=== PATIENT | female | born 1935 | race Caucasian/White ===

== ENCOUNTER → 2023-12-25 00:16 | Outpatient (REF) | payer MEDICARE, SELFPAY | LOC: DHSLP 00:16 | PROVIDERS: ATTENDING PHYSICIAN Internal Medicine; FAMILY PHYSICIAN Internal Medicine | DX: G47.33 Obstructive sleep apnea (adult) (pediatric) (principal); G47.61 Periodic limb movement disorder | CPT/HCPCS: 95811 ==

== ENCOUNTER → 2023-12-30 11:19 | Outpatient (REF) | payer MEDICARE, SELFPAY ==
[2023-12-30 16:05] LABS: % Eosinophils 4.7 % (0-6); % Immature Granulocytes 0.2 % (0-0.5); % Lymphocytes 31.8 % (20.5-51.1); % Monocytes 10.8 % (1.7-9.3); % Neutrophils 51.5 % (42.2-75.2); Absolute Basophils 0.1 10^3/uL (0-0.2); Absolute Eosinophils 0.3 10^3/uL (0-0.7); Absolute Monocytes 0.7 10^3/uL (0.1-0.6); Absolute Neutrophils 3.2 10^3/uL (1.4-6.5); Hematocrit 38.8 % (37.0-47.0); Hemoglobin 12.3 g/dL (12.0-16.0); Mean Corp Hgb Conc. 31.7 g/dL (33.0-37.0); Mean Corpuscular Hgb 31.4 pg (27.0-31.0); Mean Platelet Volume 11.4 fL (7.4-10.4); Nucleated Red Blood Cells % 0 %; Platelet Count 151 10^3/uL (130-400); Red Blood Cell Count 3.92 10^6/uL (4.20-5.40); Red Cell Dist. Width 13.5 % (11.5-14.5); White Blood Cell Count 6.2 10^3/uL (4.8-10.8)
[2023-12-30 16:31] LABS: ALT (SGPT) 19 U/L (0-35); AST (SGOT) 29 U/L (14-36); Albumin 3.8 g/dl (3.5-5.0); Alkaline Phosphatase 78 U/L (38-126); Blood Urea Nitrogen 62 mg/dl (7-17); Calcium 9.4 mg/dl (8.4-10.2); Carbon Dioxide 33 mmol/L (22-30); Chloride 100 mmol/L (98-107); Glucose 97 mg/dl (70-99); HDL Cholesterol 60 mg/dl; LDL Cholesterol, Calculated 128 mg/dl; Potassium 4.2 mmol/L (3.5-5.1); Sodium 139 mmol/L (135-145); Total Bilirubin 0.7 mg/dl (0.2-1.3); Total Cholesterol 204 mg/dl (50-199); Total Protein 6.5 g/dl (6.3-8.2); Triglyceride 83 mg/dl (10-149); Very Low Density Lipoprotein 16 mg/dl (0-30)
[2023-12-31 09:33] LABS: Glycohemoglobin (HgbA1c) 5.8 % (4.0-5.6)
[2024-01-01 21:56] LABS: ANA, IgG Reflex to HEp-2 None Detected (None Detected)
== END ==
LOC: HWLAB 11:19
PROVIDERS: ATTENDING PHYSICIAN Internal Medicine; FAMILY PHYSICIAN Psychiatry & Neurology Neurology
DX: I10 Essential (primary) hypertension (principal); E78.5 Hyperlipidemia, unspecified; E66.3 Overweight; Z00.00 Encounter for general adult medical examination without abnormal findings; Z95.0 Presence of cardiac pacemaker
CPT/HCPCS: 36415; 80053; 80061; 83036; 85025; 86038

== ENCOUNTER 2024-01-21 15:41 | Outpatient (RCR) | payer MEDICARE, SELFPAY | END 2024-01-21 23:59 | disposition home or self-care (01) | LOC: RPT 15:41 | PROVIDERS: ATTENDING PHYSICIAN Psychiatry & Neurology Neurology; FAMILY PHYSICIAN Internal Medicine | DX: G62.9 Polyneuropathy, unspecified (principal); R26.2 Difficulty in walking, not elsewhere classified; Z73.6 Limitation of activities due to disability; M62.81 Muscle weakness (generalized) | CPT/HCPCS: 97110; 97112; 97162; 97530 ==

== ENCOUNTER → 2024-01-29 12:18 | Outpatient (REF) | payer MEDICARE, SELFPAY ==
[2024-01-29 16:40] LABS: Urine Albumin Trace (Neg - Trace); Urine Bilirubin Negative (Negative); Urine Character Clear (Clear); Urine Color Yellow; Urine Glucose Negative (Negative); Urine Ketone Negative (Negative); Urine Leukocyte 2+ (Negative); Urine Nitrite Positive (Negative); Urine Occult Blood Trace (Negative); Urine Urobilinogen Negative (Neg - 1+)
[2024-01-29 16:54] LABS: Urine Bacteria Many (Negative); Urine White Cell 50-60 /HPF (0-5)
== END ==
LOC: HWLAB 12:18
PROVIDERS: ATTENDING PHYSICIAN Internal Medicine
DX: R05.9 Cough, unspecified (principal); N39.0 Urinary tract infection, site not specified
CPT/HCPCS: 81003; 81015; 87077; 87086; 87186

== ENCOUNTER → 2024-02-09 12:24 | Outpatient (REF) | payer MEDICARE, SELFPAY | LOC: MRI 12:24 | PROVIDERS: ATTENDING PHYSICIAN Psychiatry & Neurology Neurology; FAMILY PHYSICIAN Internal Medicine | DX: M79.604 Pain in right leg (principal); Z95.0 Presence of cardiac pacemaker | CPT/HCPCS: 71046; 72148 ==

== ENCOUNTER → 2024-03-16 10:15 | Outpatient (REF) | payer MEDICARE, SELFPAY ==
[2024-03-16 15:18] LABS: Urine Albumin Negative (Neg - Trace); Urine Bilirubin Negative (Negative); Urine Character Clear (Clear); Urine Color Yellow; Urine Glucose Negative (Negative); Urine Ketone Negative (Negative); Urine Leukocyte Trace (Negative); Urine Nitrite Negative (Negative); Urine Occult Blood Negative (Negative); Urine Urobilinogen Negative (Neg - 1+)
[2024-03-16 15:24] LABS: Urine Bacteria Moderate (Negative); Urine Red Blood Cell 0-2 /HPF (0-2); Urine Squamous Cell >30 /LPF (Few)
== END ==
LOC: HWLAB 10:15
PROVIDERS: ATTENDING PHYSICIAN Internal Medicine
DX: R39.9 Unspecified symptoms and signs involving the genitourinary system (principal)
CPT/HCPCS: 81003; 81015; 87086

== ENCOUNTER → 2024-04-14 10:39 | Outpatient (REF) | payer MEDICARE, SELFPAY ==
[2024-04-14 12:06] LABS: Urine Albumin Negative (Neg - Trace); Urine Bilirubin Negative (Negative); Urine Character Clear (Clear); Urine Color Yellow; Urine Glucose Negative (Negative); Urine Ketone Negative (Negative); Urine Leukocyte Negative (Negative); Urine Nitrite Negative (Negative); Urine Occult Blood Negative (Negative); Urine Specific Gravity 1.015 (<1.030); Urine Urobilinogen Negative (Neg - 1+)
== END ==
LOC: HWLAB 10:39
PROVIDERS: ATTENDING PHYSICIAN Internal Medicine
DX: R61 Generalized hyperhidrosis (principal); N39.0 Urinary tract infection, site not specified
CPT/HCPCS: 81003; 87086

== ENCOUNTER 2024-04-28 11:32 | Outpatient (RCR) | payer MEDICARE, SELFPAY | END 2024-04-28 23:59 | disposition home or self-care (01) | LOC: RPT 11:32 | PROVIDERS: ATTENDING PHYSICIAN Internal Medicine | DX: R26.89 Other abnormalities of gait and mobility (principal) | CPT/HCPCS: 97110; 97162 ==

== ENCOUNTER → 2024-05-05 11:32 | Outpatient (REF) | payer MEDICARE, SELFPAY ==
[2024-05-05 16:55] LABS: Urine Albumin Negative (Neg - Trace); Urine Bilirubin Negative (Negative); Urine Character Clear (Clear); Urine Color Yellow; Urine Glucose Negative (Negative); Urine Ketone Negative (Negative); Urine Leukocyte Trace (Negative); Urine Nitrite Positive (Negative); Urine Occult Blood Negative (Negative); Urine Specific Gravity 1.015 (<1.030); Urine Urobilinogen Negative (Neg - 1+)
[2024-05-05 17:10] LABS: Blood Urea Nitrogen 47 mg/dl (7-17)
[2024-05-05 17:16] LABS: Urine Bacteria Moderate (Negative); Urine Red Blood Cell 0-2 /HPF (0-2); Urine White Cell 0-2 /HPF (0-5)
== END ==
LOC: HWLAB 11:32
PROVIDERS: ATTENDING PHYSICIAN Internal Medicine
DX: E86.0 Dehydration (principal); R35.0 Frequency of micturition
CPT/HCPCS: 36415; 81003; 81015; 82565; 84520; 87086; 87088; 87186

== ENCOUNTER 2024-05-26 12:45 | Outpatient (RCR) | payer MEDICARE, SELFPAY | END 2024-05-26 23:59 | disposition home or self-care (01) | LOC: RPT 12:45 | PROVIDERS: ATTENDING PHYSICIAN Internal Medicine | DX: R26.89 Other abnormalities of gait and mobility (principal); M48.061 Spinal stenosis, lumbar region without neurogenic claudication; Z73.6 Limitation of activities due to disability | CPT/HCPCS: 97110; 97112 ==

== ENCOUNTER → 2024-05-27 09:11 | Outpatient (REF) | payer MEDICARE, SELFPAY | LOC: MRI 09:11 | PROVIDERS: ATTENDING PHYSICIAN Surgery; FAMILY PHYSICIAN Internal Medicine | DX: K80.20 Calculus of gallbladder without cholecystitis without obstruction (principal); K82.8 Other specified diseases of gallbladder; K83.8 Other specified diseases of biliary tract | CPT/HCPCS: 74183; A9575 ==

== ENCOUNTER 2024-06-18 13:07 | Outpatient (RCR) | payer MEDICARE, SELFPAY | END 2024-06-30 07:46 | disposition home or self-care (01) | LOC: RPT 13:07 | PROVIDERS: ATTENDING PHYSICIAN Internal Medicine | DX: R26.89 Other abnormalities of gait and mobility (principal); M48.061 Spinal stenosis, lumbar region without neurogenic claudication; Z73.6 Limitation of activities due to disability | CPT/HCPCS: 97110; 97112 ==

== ENCOUNTER → 2025-02-04 11:03 | Outpatient (REF) | payer MEDICARE, SELFPAY ==
[2025-02-04 15:22] LABS: % Basophils 0.9 % (0-2); % Eosinophils 4.9 % (0-6); % Immature Granulocytes 0.1 % (0-0.5); % Lymphocytes 26.9 % (20.5-51.1); % Monocytes 10.2 % (1.7-9.3); Absolute Basophils 0.1 10^3/uL (0-0.2); Absolute Eosinophils 0.3 10^3/uL (0-0.7); Absolute Lymphocytes 1.9 10^3/uL (1.2-3.4); Absolute Monocytes 0.7 10^3/uL (0.1-0.6); Hemoglobin 12.3 g/dL (12.0-16.0); Mean Corp Hgb Conc. 30.8 g/dL (33.0-37.0); Mean Corpuscular Hgb 30.4 pg (27.0-31.0); Mean Corpuscular Volume 98.8 fL (81.0-99.0); Mean Platelet Volume 10.5 fL (7.4-10.4); Nucleated Red Blood Cells % 0 %; Platelet Count 143 10^3/uL (130-400); Red Blood Cell Count 4.05 10^6/uL (4.20-5.40); Red Cell Dist. Width 12.8 % (11.5-14.5)
[2025-02-04 15:28] LABS: ALT (SGPT) 18 U/L (0-35); AST (SGOT) 32 U/L (14-36); Albumin 4.1 g/dl (3.5-5.0); Alkaline Phosphatase 81 U/L (38-126); Blood Urea Nitrogen 39 mg/dl (7-17); Calcium 9.3 mg/dl (8.4-10.2); Carbon Dioxide 32 mmol/L (22-30); Chloride 99 mmol/L (98-107); Glucose 97 mg/dl (70-99); HDL Cholesterol 65 mg/dl; LDL Cholesterol, Calculated 125 mg/dl; Potassium 4.6 mmol/L (3.5-5.1); Sodium 139 mmol/L (135-145); Total Bilirubin 0.9 mg/dl (0.2-1.3); Total Cholesterol 210 mg/dl (50-199); Total Protein 6.6 g/dl (6.3-8.2); Triglyceride 100 mg/dl (10-149); Very Low Density Lipoprotein 20 mg/dl (0-30); eGFR 43.54
== END ==
LOC: HWLAB 11:03
PROVIDERS: ATTENDING PHYSICIAN Internal Medicine
DX: I10 Essential (primary) hypertension (principal); Z95.0 Presence of cardiac pacemaker; E78.5 Hyperlipidemia, unspecified
CPT/HCPCS: 36415; 80053; 80061; 85025

== ENCOUNTER → 2025-02-23 12:34 | Outpatient (REF) | payer MEDICARE, SELFPAY | LOC: HWRAD 12:34 | PROVIDERS: ATTENDING PHYSICIAN Nurse Practitioner Women's Health; FAMILY PHYSICIAN Internal Medicine | DX: N83.209 Unspecified ovarian cyst, unspecified side (principal) | CPT/HCPCS: 76830; 76856 ==

== ENCOUNTER → 2025-03-11 12:53 | Outpatient (REF) | payer MEDICARE, SELFPAY | LOC: HWWDC 12:53 | PROVIDERS: ATTENDING PHYSICIAN Nurse Practitioner Women's Health; FAMILY PHYSICIAN Internal Medicine | DX: Z12.31 Encounter for screening mammogram for malignant neoplasm of breast (principal); M81.0 Age-related osteoporosis without current pathological fracture | CPT/HCPCS: 77063; 77067; 77080 ==

== ENCOUNTER → 2025-03-29 12:07 | Outpatient (REF) | payer MEDICARE, SELFPAY ==
[2025-03-29 16:48] LABS: CA 125 < 5.5 U/mL (0-35)
== END ==
LOC: HWLAB 12:07
PROVIDERS: ATTENDING PHYSICIAN Nurse Practitioner Women's Health; FAMILY PHYSICIAN Internal Medicine; REFERRING PHYSICIAN Obstetrics & Gynecology Gynecologic Oncology
DX: N83.209 Unspecified ovarian cyst, unspecified side (principal); E78.5 Hyperlipidemia, unspecified
CPT/HCPCS: 36415; 86304

== ENCOUNTER → 2025-04-06 12:02 | Outpatient (REF) | payer MEDICARE, SELFPAY ==
[2025-04-06 17:33] LABS: CEA 4.23 ng/ml
== END ==
LOC: HWLAB 12:02
PROVIDERS: ATTENDING PHYSICIAN Nurse Practitioner Women's Health; FAMILY PHYSICIAN Internal Medicine; REFERRING PHYSICIAN Obstetrics & Gynecology Gynecologic Oncology
DX: R19.09 Other intra-abdominal and pelvic swelling, mass and lump (principal); R97.0 Elevated carcinoembryonic antigen [CEA]; R97.1 Elevated cancer antigen 125 [CA 125]
CPT/HCPCS: 36415; 82378

== ENCOUNTER → 2025-08-18 13:50 | Outpatient (REF) | payer MEDICARE, SELFPAY ==
[2025-08-18 16:07] LABS: Urine Character Clear (Clear)
== END ==
LOC: HWLAB 13:50
PROVIDERS: ATTENDING PHYSICIAN Internal Medicine
DX: R39.9 Unspecified symptoms and signs involving the genitourinary system (principal)
CPT/HCPCS: 81003; 87086

== ENCOUNTER → 2025-09-06 16:32 | Outpatient (REF) | payer MEDICARE, SELFPAY ==
[2025-09-06 17:14] LABS: Urine Character Clear (Clear)
== END ==
LOC: CLAB 16:32
PROVIDERS: ATTENDING PHYSICIAN Internal Medicine
DX: N39.0 Urinary tract infection, site not specified (principal); R31.9 Hematuria, unspecified
CPT/HCPCS: 81003; 87086

== ENCOUNTER → 2025-09-19 13:09 | Outpatient (REF) | payer MEDICARE, SELFPAY ==
[2025-09-19 15:39] LABS: Urine Character Clear (Clear)
== END ==
LOC: HWLAB 13:09
PROVIDERS: ATTENDING PHYSICIAN Internal Medicine
DX: R39.9 Unspecified symptoms and signs involving the genitourinary system (principal)
CPT/HCPCS: 81003; 87086

== ENCOUNTER → 2025-10-07 10:34 | Outpatient (REF) | payer MEDICARE, SELFPAY ==
[2025-10-07 12:29] LABS: Urine Character Slightly Cloudy (Clear)
[2025-10-07 12:44] LABS: Urine Squamous Cell 0-2 /LPF (Few); Urine White Cell 30-40 /HPF (0-5)
== END ==
LOC: HWLAB 10:34
PROVIDERS: ATTENDING PHYSICIAN Internal Medicine
DX: R30.0 Dysuria (principal)
CPT/HCPCS: 81003; 81015; 87077; 87086; 87186